=== PATIENT | male | born 1955 | race African-American/Black ===

== ENCOUNTER → 2019-12-05 | Outpatient (CLI) | payer MEDICARE, BC | END | disposition home or self-care (01) | DX: Z01.818 Encounter for other preprocedural examination (principal); R05 Cough; J98.11 Atelectasis ==

== ENCOUNTER → 2020-02-04 | Day surgery (SDC) | payer MEDICARE, BC ==
--- NOTE | 2020-02-01 10:12 | Opthalmology H&P ---
Ophthalmology H&P H&P Chief Complaint: decreased vision in right eye HPI Vision Affects Ability to: read, focus/use eyes together, manage personal affairs Past Ocular History: glaucoma HPI Narrative Blurry vision Exam Visual Acuity: OD 20/160 OS 20/30 Tension: OD 15 OS 19 Eye Exam: normal OU: external exam, palpebral fissure-width, marginal reflex distance, levator function, corneas, anterior chambers; findings: lens - NS/PSC Cataracts OU, fundus exam - Glaucoma Assessment/Plan Treatment Plan: cataract extraction w/ lens implant Goals of Treatment: improvement of vision, enhance quality of life Attestation Attestation The risks and benefits of the surgery as well as alternative procedures were explained to the patient in detail. Ananth Carver MD Feb 01, 2020 10:12
--- NOTE | 2020-02-01 10:15 | Pre-Procedure Note/Attestation ---
Pre-Procedure Note/Attestation Complete Prior to Procedure Planned Procedure: right Procedure Narrative: Cataract extraction with IOL implant right eye Indications for Procedure Pre-Operative Diagnosis: Nuclear sclerotic/Posterior subcapsular cataract right eye Attestation I attest that I discussed the nature of the procedure; its benefits; risks and complications; and alternatives (and the risks and benefits of such alternatives ), prior to the procedure, with the patient (or the patient's legal risk control representative). I attest that, if there was a reasonable possibility of needing a blood transfusion, the patient (or the patient's legal risk control representative) was given the [facility] standardized written summary, pursuant to the [place] Blood Safety Act ([place] Health and Safety Code # 1645, as amended). I attest that I re-evaluated the patient just prior to the surgery and that there has been no change in the patient's H&P, except as documented below: Ananth Carver MD Feb 01, 2020 10:15
[~2020-02-04] VITALS: Ht 170.2 cm; Wt 80.3 kg
[2020-02-04] VITALS (7 sets, daily range): BP systolic 141–173; BP diastolic 74–101
[~2020-02-04] MED LIST: AMLODIPINE BESYL5 MG ORAL; ASPIRIN81 MG ORAL; ATORVASTATIN CA40 MG ORAL; Akten 3.5% 1ml Btl RIGHT EYE ONE; Cyclopentolate 1% Opth Sol 2ml RIGHT EYE SCH; Diclofenac Sod 0.1% Op Soln RIGHT EYE SCH; DiphenhydrAMINE 50mg/ml Inj IVP PRN; IRON18 M1 PO; LISINOPRIL5 MG ORAL; LR 1000ml 1,000 ML IVLG SCH; LR 1000ml ONE; Lidocaine 1% MPF 10mg/ml 5ml ONE; METOPROLOL SUCC25 MG ORAL; Maxitrol Opth Oint 3.5gm ONE; Midazolam 2mg/2ml Inj ONE; NITROSTAT0.3 MG SL; NS Irrig 1000ml ONE; Phenylephrine 10% Opth Soln 5ml RIGHT EYE SCH; Pilocarpine 1% Opth 15ml Soln ONE; Proparacaine 0.5% Opth Soln 15ml RIGHT EYE ONE; Sterile Water Irrig 1000ml IRRIG ONE; Tetracaine 0.5% Opth 4ml Soln RIGHT EYE ONE; Tobramycin Op Soln 0.3% 5ml RIGHT EYE SCH; Tropicamide 1% Opth 15ml Soln RIGHT EYE SCH; fentaNYL 100 mcg/2 mL IV ONE; prednisoLONE acetate 1% Opth Susp 1ml ONE
--- NOTE | 2020-02-04 10:36 | Anethesia Preoperative Eval ---
Anesthesia Pre-op PMH/ROS General Date of Evaluation: Feb 04, 2020 Anesthesiologist: Segun ASA Score: ASA 3 Mallampati Score Class I : Soft palate, uvula, fauces, pillars visible Class II: Soft palate, uvula, fauces visible Class III: Soft palate, base of uvula visible Class IV: Only hard plate visible Mallampati Classification: Class III Surgeon: Wen Diagnosis: Right cataract Surgical Procedure: Right cataract extraction with IOL Anesthesia History: none Family History: no anesthesia problems Allergies: Coded Allergies: No Known Allergies (Unverified , 01/31/20) Medications: see eMAR Patient NPO?: Yes NPO Date: Feb 04, 2020 NPO Time: 00:00 Past Medical History Cardiovascular: Reports: HTN, CAD, other - HLD; Denies: NC, valve dz, arrhythmia Pulmonary: Denies: asthma, COPD, NAVNEET, other Gastrointestinal/Genitourinary: Reports: other - h/o prostate cancer; Denies: GERD, CRI, ESRD Neurologic/Psychiatric: Denies: dementia, CVA, depression/anxiety, TIA, other Endocrine: Denies: DM, hypothyroidism, steroids, other HEENT: Reports: cataract (L), cataract (R); Denies: glaucoma, VIEJAS (L), VIEJAS (R), other Hematology/Immune: Denies: anemia, DVT, bleeding disorder, other Musculoskeletal/Integumentary: Reports: other - gout; Denies: OA, RA, DJD, DDD, edema PSxH Narrative: prostatectomy, right ankle sx, coronary stent Anesthesia Pre-op Phys. Exam Physician Exam Last Vital Signs Date Time Temp Pulse Resp B/P (MAP) Pulse Ox O2 Delivery O2 Flow Rate FiO2 02/04/20 08:44 Room Air 02/04/20 08:33 97.7 50 18 168/86 98 Constitutional: NAD Cardiovascular: RRR Respiratory: CTA Airway Exam Mallampati Score: Class III MO: limited ROM: limited Anesthesia Pre-op A/P Labs see chart Studies Pre-op Studies: EKG - sr Risk Assessment & Plan Assessment: ASA III Plan: MAC Status Change Before Surgery: No Pre-Antibiotics Drug: N/A Jeimy Cast MD Feb 04, 2020 10:35
--- NOTE | 2020-02-04 12:10 | Immediate Post-Op Evaluation ---
Immediate Post-Op Evalulation Immediate Post-Op Evalulation Procedure: Right cataract extraction with IOL Date of Evaluation: Feb 04, 2020 Time of Evaluation: 12:13 IV Fluids: 100 Blood Products: 0 Estimated Blood Loss: 0 Urinary Output: 0 Blood Pressure Systolic: 163 Blood Pressure Diastolic: 91 Pulse Rate: 53 Respiratory Rate: 16 O2 Sat by Pulse Oximetry: 99 Temperature (Fahrenheit): 97.6 Pain Score (1-10): 0 Nausea: No Vomiting: No Complications 0 Patient Status: awake, reacts, patent, none Hydration Status: adequate Drug: N/A Jeimy Cast MD Feb 04, 2020 12:10
--- NOTE | 2020-02-04 12:11 | 48 Hour Post Anesthesia Eval ---
Post Anesthesia Evaluation Procedure: Right cataract extraction with IOL Date of Evaluation: Feb 04, 2020 Airway: patent Nausea: No Vomiting: No Pain Intensity: 0 Hydration Status: adequate Cardiopulmonary Status: at [place] Mental Status/LOC: patient returned to baseline Post-Anesthesia Complications: 0 Follow-up care needed: ready to discharge Jeimy Cast MD Feb 04, 2020 12:11
--- NOTE | 2020-02-05 12:48 | Brief Operative Note ---
Immediate Post Operative Note Operative Note Chief Complaint: Blurry vision Pre-op Diagnosis: Nuclear sclerotic/Posterior subcapsular cataract right eye Procedure: Cataract extraction with IOL implant right eye Post-op Diagnosis: Pseudo OD Findings: consistent w/pre-op dx studies Surgeon: Ananth Carver MD Anesthesiologist: Jeimy Cast MD Anesthesia: MAC Specimen: none Complications: none Condition: stable Fluids: LR Estimated Blood Loss: none Drains: none Implant(s) used?: Yes - IOL-OD Ananth Carver MD Feb 05, 2020 12:48
--- NOTE | 2020-02-05 12:54 | Operative Note - PDOC ---
Operative Note Operative Note Date of Operation/Procedure: Feb 04, 2020 Chief Complaint: Blurry vision Pre-op Diagnosis: Nuclear sclerotic/Posterior subcapsular cataract right eye Procedure: Cataract extraction with IOL implant right eye Post-op Diagnosis: Pseudo OD Operative Findings: consistent w/pre-op dx studies Surgeon: Ananth Carver MD Anesthesiologist: Jeimy Cast MD Anesthesia: MAC Specimen: none Complications: none Condition: stable Fluids: LR Estimated Blood Loss: none Drains: none Implant(s) used?: Yes - IOL-OD Indications for Procedure Nuclear sclerotic/ Posterior subcapsular cataract right eye Description of Procedure This patient has been complaining visually significant cataract in the right eye with the best corrected visual acuity of 20/160 under moderate glare conditions worse. The patient complains of difficulties with glare in performing activities of daily living and wants to manage personal affairs with comfort and accuracy and see well enough to move with safety at home and outdoors. The risks, benefits and alternatives of the procedure were discussed with the patient in the office prior to scheduling surgery. All questions from the patient were answered after the surgical procedure was explained in detail. The risks of the procedure as explained to the patient include, but are not limited to, pain, infection, bleeding, loss of vision, retinal detachment, need for further surgery, loss of lens nucleus, double vision, etc. Alternative procedures were discussed which include, to do nothing or seek a second opinion. Informed consent for this procedure was obtained from the patient. The patient was referred to a primary care physician for a cardiopulmonary clearance prior to surgery, after proper evaluation was done patient was properly scheduled for outpatient surgery. The patient was brought to the operating room where the anesthesiologist established I.V. lines and cardiac monitoring leads. Mild intravenous sedation was administered. The patient was then prepared with a 5% solution of povidone -iodine to the conjunctival fornix and lashes, and a 5% solution of povidone- iodine to the lids and periorbital skin. The patient was then draped in the usual sterile fashion. A lid speculum was then placed in the operative eye. A keratome blade was then used to create a biplanar incision into the anterior chamber. Viscoelastics was then instilled into the anterior chamber. A 3-mm single pass clear corneal incision was made just anterior to the vascular arcade of the temporal limbus using a keratome. Anterior capsulorrhexis was created. The nucleus was hydrodissected and hydrodelineated, and was freely movable in the capsular bag. The nucleus was then phacoemulsified. Following the deep groove formation, the lens was split bimanually and epicortex removed under vacuum burst-mode phacoemulsification. Peripheral cortex was removed with the irrigation and aspiration handpiece. The capsular bag was expanded with viscoelastic. The intraocular lens was then inspected for right power and size and thought to be satisfactory. The implant was inspected under the microscope and found to be free of defects. The implant was inserted into the cartridge system under viscoelastic and placed in the capsular bag. The trailing haptic was positioned with the cartridge system. Viscoelastics was removed from the anterior chamber using the irrigation and aspiration unit. The corneal wound was then tested for leaks and none were found. The lid speculum were then removed. Sponge and needle counts were correct. An eye patch and shield were placed over the operative eye. The patient was taken to the recovery room in stable condition. There were no complications. The patient tolerated the procedure well. The patient was then transferred to the ambulatory surgery unit in stable and satisfactory condition , was given detailed written instructions and asked to follow up in the office the next day. Ananth Carver MD Feb 05, 2020 12:54
== END | disposition home or self-care (01) ==
LOC: SUR 06:16
DX: H25.11 Age-related nuclear cataract, right eye (principal); H25.041 Posterior subcapsular polar age-related cataract, right eye; H40.9 Unspecified glaucoma
CPT/HCPCS: 66984; 94003; J1100; J2250; J3010; J7120; U0002; V2632; 94150

== ENCOUNTER → 2020-04-21 | Outpatient (CLI) | payer MEDICARE, BC ==
[~2020-04-21] MED LIST changes: -Akten 3.5% 1ml Btl RIGHT EYE ONE; -Cyclopentolate 1% Opth Sol 2ml RIGHT EYE SCH; -Diclofenac Sod 0.1% Op Soln RIGHT EYE SCH; -DiphenhydrAMINE 50mg/ml Inj IVP PRN; -LR 1000ml 1,000 ML IVLG SCH; -LR 1000ml ONE; -Lidocaine 1% MPF 10mg/ml 5ml ONE; -Maxitrol Opth Oint 3.5gm ONE; -Midazolam 2mg/2ml Inj ONE; -NS Irrig 1000ml ONE; -Phenylephrine 10% Opth Soln 5ml RIGHT EYE SCH; -Pilocarpine 1% Opth 15ml Soln ONE; -Proparacaine 0.5% Opth Soln 15ml RIGHT EYE ONE; -Sterile Water Irrig 1000ml IRRIG ONE; -Tetracaine 0.5% Opth 4ml Soln RIGHT EYE ONE; -Tobramycin Op Soln 0.3% 5ml RIGHT EYE SCH; -Tropicamide 1% Opth 15ml Soln RIGHT EYE SCH; -fentaNYL 100 mcg/2 mL IV ONE; -prednisoLONE acetate 1% Opth Susp 1ml ONE
--- NOTE | 2020-04-21 17:05 | Diagnostic Imaging Report ---
Indication: Cough Technique: 2 views of the chest Comparison: 12/05/2019 Findings: Lungs and pleural spaces are clear. The heart size is normal. The aorta is elongated and slightly tortuous. There are degenerative changes of the thoracic spine Impression: No acute process
== END | disposition home or self-care (01) ==
LOC: RAD 16:12
DX: Z01.818 Encounter for other preprocedural examination (principal); R05 Cough
CPT/HCPCS: 71046